=== PATIENT | male | born 1970 | race Caucasian/White ===

== ENCOUNTER 2017-11-26 07:11 | Emergency (ER) | payer OTHER, SELFPAY ==
[2017-11-26 07:14] VITALS: BP 128/77; PULSE 75; RESP 16; TEMP 36.8; O2SAT 100; BMI 22.1
--- NOTE | 2017-11-26 07:27 | ED.VISSUMM ---
- ER Visit Summary Date of Service: 11/26/17 Chief Complaint: Epigastric abdominal pain History of Present Illness: The patient is a 47 M presents from urgent care because of left lower quadrant pain on palpation. He presents with epigastric burning-like discomfort since Sunday. He ate a cheesy vegetable pizza at 1700. Pain started at approximately 2000. The pain is been constant. Movement does exacerbate the pain. He has tried multiple [id number] antacids without effect. He does complain of nausea without vomiting or diarrhea. He denies fever, chills night sweats. He denies weight loss or weight gain. He states he is a vegetarian. He denies any chest discomfort. He denies history of liver, gallbladder or kidney disease. He states there is no family history of cholelithiasis or renal/ureteral lithiasis. He states this is the third episode. He does not recall what he may have eaten before the first. For the second episode he had a pizza with cheese. He does admit to drinking 3-4 beers. He apparently had wine with the pizza on Sunday. He denies history of pancreatitis. He is a non-smoker. There is no history of trauma. He denies any black or bloody stool. He does report increased belching and burping. Bowel movements have been normal with no change in color, consistency or caliber of his stool. He denies dysuria, frequency, urgency or hematuria. He denies any ocular, visual or auditory symptoms. He does complain of thirst. He denies any cardiac or respiratory symptoms. Please read written note for complete detail Physical Examination: Vital signs are normal. He is afebrile. He is a thin gentleman. He does not appear in obvious distress. Head is atraumatic normocephalic. Pupils are equal round reactive. Extraocular muscles are intact. TMs are pearly white with landmarks noted. Nares patent with no drainage. Posterior pharynx without erythema or exudate. Uvula is midline. There is no dysphonia or dysphasia. Trachea is midline. There is no stridor with auscultation of the neck. Heart is regular without murmur, gallop or rub. S1 and S2 are normal. Lungs are clear to auscultation with good movement of air bilaterally. Abdomen is slightly distended tympanitic with decreased bowel sounds. He hurts predominantly in the left lower quadrant and right lower quadrant. Pain is greater on the left side. There is mild discomfort with deep palpation and guarding. He is tympanitic to percussion. There is no peritoneal symptoms with percussion. Evidence of umbilical or inguinal hernia. There is no skin lesion noted. There is no CVA tenderness. He is alert oriented with a nonfocal neurologic exam. Test Results: CBC is remarkable for mild anemia with an H&H 12.4 and 37.9. Electronic panels unremarkable. Hepatic and lipase are unremarkable. CT of the abdomen and pelvis with IV contrast was obtained and reveals a mesenteric mass. Radiologist concerned this represents lymphoma. Patient was made aware of CT results. There is a large soft tissue mass centered in the mesentery, which appears to encase portions of the superior mesenteric artery and vein. This region is heterogeneous with scattered areas of low attenuation which may represent necrosis. This measures at least 10.5 x 5.4 cm. Additional matted lymph nodes are seen within the mesentery. Emergency Department Course and Treatment: IV was established and patient was made n.p.o. He was offered pain medicine which he declined. Based on his description of discomfort concern for gastritis, peptic ulcer disease liver/gallbladder disease. With history of alcohol use one needs to entertain possibility pancreatitis. With having significant tenderness left lower quadrant concern for diverticular disease. A CBC, hepatic and lipase were ordered as well as BMP to assess renal function. Treatment Plan: In light of the CT results Dr. Brennon Barger oncologist for the clinic clinic was contacted since his PCP is Dr. Jaeger. Dr. Navarrete requested additional blood work. The uric acid level, LDH and coags are all normal. Two-view chest x-ray was obtained and there is no hilar lymphadenopathy. Patient is scheduled for outpatient CT-guided biopsy for November 28 at 10 AM. Disposition: Discharged to home with outpatient follow-up and further testing Impression: Abdominal pain secondary to mesenteric mass with lymphadenopathy suspect lymphoma This note was generated with [employer] dictation software. It may contain incorrect words, spelling, and punctuation that were not noted in review of the chart prior to signing ED Disposition - Plan for ED Patient: Disposition: Home or Assisted Living Chief Complaint: Abd Pain Instructions: Discharge Instructions for Hodgkin Disease Referrals: Harpreet Jaeger MD [Primary Care Provider] - Brennon Barger MD [STAFF PHYSICIAN] - 1 Week
[2017-11-26] MEDS: 0.9% Normal Saline 1,000 ML 250 ML IV (07:39)
[2017-11-26 07:47] LABS: Absolute Lymphocyte Count 1.19 X10^3/ul (0.83-4.51); Absolute Neutrophil Count 6.1 X10^3/uL (2.0-7.7); Basophil% 0.2 % (0-1); Eosinophils% 1.3 % (0-5); Hemoglobin 12.4 g/dl (13.0-16.5); Lymphocyte # 1.19 X10^3/ul (4.0); Lymphocyte % 14.3 % (19-41); Mean Corp Hgb Conc 31.8 g/gl (32-36); Mean Corpuscular Hgb 27.9 pg (27.0-32.0); Mean Corpuscular Volume 87.8 fL (80-94); Mean Platelet Vol. 9.5 fl (6.2-12.0); Monocyte# 0.94 X10^3/uL; Monocyte% 11.3 % (0-10); Neutrophil # 6.07 X10^3/uL (2.7-7.7); Neutrophil % 72.8 % (47-70); Platelet Count 239 K/mm3 (150-450); RBC Distribution Width CV 13.9 % (11.6-14.6); RBC Distribution Width SD 44.3 fl (35.1-43.9); Red Blood Count 4.44 M/mm3 (4.6-6.2); White Blood Count 8.3 K/mm3 (4.4-11.0)
[2017-11-26 07:48] LABS: Basophil# 0.02 X10^3/uL; Eosinophil# 0.11 X10^3/uL
[2017-11-26 07:50] LABS: POSITIVE COUNT NO; POSITIVE DIFFERENTIAL NO; POSITIVE MORPHOLOGY NO
[2017-11-26 08:05] LABS: AST(SGOT) 18 U/L (15-37); Alanine Aminotransfer ALT/SGPT 17 U/L (16-61); Albumin, Serum 3.7 g/dL (3.2-5.0); Alkaline Phosphatase 71 U/L (45-117); Anion Gap 5 (5-15); BUN 10 mg/dL (7-18); BUN/Creat Ratio 9.3 RATIO (10-20); Bilirubin, Direct 0.28 mg/dL (0.00-0.30); Calcium,Total 8.7 mg/dL (8.5-10.1); Chloride 105 mmol/L (98-107); Creatinine, Serum 1.07 mg/dL (0.70-1.30); EST Glomerular Filtration Rate 79 mL/min (>60); Est Glom Filt Rate - Afr Amer 96 mL/min (>60); Estimated Creatinine Clearance 88.93 ml/min; Globulin 3.9 g/dL (2.2-4.2); Glucose 94 mg/dL (74-106); Lipase 119 U/L (73-393); Potassium 3.7 mmol/L (3.5-5.1); Protein, Total 7.6 g/dL (6.4-8.2); Sodium Level 139 mmol/L (136-145)
--- NOTE | 2017-11-26 08:17 | CT_ITS ---
STUDY: CT ABDOMEN AND PELVIS WITH CONTRAST REASON FOR EXAM: Male, 47 years old. Left lower quadrant abdominal pain, guarding RADIATION DOSAGE (If Supplied By Facility): CTDIvol = ( 9.71 ) mGy, DLP = ( 524.39 ) mGycm TECHNIQUE: Transaxial images were obtained from the dome of the diaphragm to the symphysis pubis without oral contrast. 100mL ml of Isovue 300 contrast was administered. Sagittal and coronal images were reconstructed. Individualized dose optimization techniques were used for this CT. COMPARISON: None. FINDINGS: The visualized lung bases are unremarkable. The visualized portions of the heart are within normal limits. Normal liver. Normal gallbladder and extrahepatic biliary system. Normal spleen. Normal pancreas. Normal bilateral adrenal glands. There is a 3.6 cm right renal cyst. Normal left kidney. Normal visualized stomach. Normal small intestine. Normal colon. There is non-visualization of the appendix. Normal abdominal aorta. Normal inferior vena cava. There is a large soft tissue mass centered in the mesentery, which appears to encase portions of the superior mesenteric artery and vein. This region is heterogeneous with scattered areas of low attenuation which may represent necrosis. This measures at least 10.5 x 5.4 cm. Additional matted lymph nodes are seen within the mesentery. Normal urinary bladder. There is a moderate amount of free fluid within the pelvis. The prostate gland appears slightly enlarged. Normal abdominal wall. Normal osseous structures. CT/Abdomen/Pelvis W IV Cont ONLY IMPRESSION: Abnormal study, with mesenteric based mass. The appearance suggests lymphoma. Additional considerations include desmoid tumor and her soft tissue sarcomas. Further evaluation with PET/CT can be performed. Ultimately, tissue sampling will likely be necessary. There is no bowel obstruction. N.B. : The above information has been verbally conveyed by Corby Mcdonald DO to Dr. Suarez, Covering Physician, on 11/26/2017 09:19:03 (ET). Electronically Signed: Corby Mcdonald DO at 9:08 EDT Tel , Service support , N.B. : The above information has been verbally conveyed by Corby Mcdonald DO to Dr. Suarez, Covering Physician, on 11/26/2017 09:19:03 (ET).
--- NOTE | 2017-11-26 09:27 | RAD_ITS ---
STUDY: X-RAY CHEST REASON FOR EXAM: Male, 47 years old. Abdominal pain TECHNIQUE: PA and lateral views of the chest. COMPARISON: CT, same date FINDINGS: The lungs are clear and expanded. There is no demonstrated pleural abnormality. Normal size heart. Normal mediastinum and danielle. Normal visualized pulmonary arteries. Normal visualized aortic arch and descending thoracic aorta. Normal visualized thoracic spine. Normal visualized ribs, clavicles, and shoulders. There is no demonstrated abnormality of the visualized soft tissue structures of the upper abdomen. RAD/Chest PA and Lateral IMPRESSION: Normal x-ray examination of the chest. No mediastinal or hilar adenopathy. Electronically Signed: Corby Mcdonald DO at 10:11 EDT Tel , Service support ,
[2017-11-26 10:00] LABS: International Normalized Ratio 1.1; Partial Thromboplast Time 30.2 Seconds (24.1-36.2); Prothrombin Time (Protime)PT. 13.9 SECONDS (11.7-14.9)
[2017-11-26 10:01] LABS: LDH 195 U/L (87-241); Uric Acid 3.8 mg/dL (3.5-7.2)
[2017-11-26 10:34] VITALS: BP 126/82; PULSE 71; RESP 16; O2SAT 98
--- NOTE | 2017-11-26 10:40 | ED.RN ---
PT GIVEN INFORMATION FOR HIS APPT FOR WED TO HAVE HIS BIOPSY. PT VERBALIZED UNDERSTANDING.
[2017-11-26 11:02] VITALS: BP 125/74; PULSE 71; RESP 14; O2SAT 99
== END 2017-11-26 11:05 | disposition home or self-care (01) ==
PROVIDERS: Emergency Provider Emergency Medicine; Family Provider Family Medicine; PCP Family Medicine
DX: R19.07 Generalized intra-abdominal and pelvic swelling, mass and lump (principal); R59.0 Localized enlarged lymph nodes; Z72.89 Other problems related to lifestyle
CPT/HCPCS: 71046; 74177; 80048; 80076; 83615; 83690; 84550; 85025; 85610; 85730; 96360; 96361; 99283; J7030; Q9967; A4216

== ENCOUNTER → 2017-11-28 09:08 | Outpatient (CLI) | payer OTHER, SELFPAY ==
--- NOTE | 2017-11-28 | IMM_PTH ---
PATIENT: GAURAV SON LOC: [place] U#:[id number] AGE/SX: 55/M ROOM: RE11/28/[address]: Dr. David Suarez MD : 1970 BED: DIS: SPEC #: [id number] RECD: 11/29/17 12:28 STATUS: JADIEL REQ #: [id number] WILLIAM: 11/28/17 00:[address]: David Suarez DEPT: IMMUNOHISTOCHEMISTRY RECD BY: Anita Wheat ENTERED: 11/29/17 12:30 SP TYPE: IMMUNO OTHR DR: Dr. Harpreet Jaeger MD Tissues: Mesentery, NOS Procedures: BCL-2 (add) BCL-6 (add) CD20 (add) CD23 (add) CD3 (add) CD30 (add) CD43 (add) CD45 (add) CD5 (add) CD79A (add) CYCLIN (add) CD15 (initial) PHYSICIAN & [place] [id number] SPECIMEN INFORMATION: Tissue Source: Lower abdominal mass Clinical Info: Mesenteric mass Specimen Number: [id number] CPT code: 53811, 99504 x11 METHODOLOGY: Deparaffinized sections of prefer/formalin-fixed tissue or PAP/DQ stained slides are incubated with monoclonal/polyclonal antibodies/oligonucleotide probes. Localization is made via biotin free immunoperoxidase method. Appropriate controls are performed and reacted as expected. Results on target cell population are indicated in the following table: RESULTS: ANTIBODY / CLONE RESULT CD15 (MMA) negative CD30 (Jose Ramon-H2) negative CD3 (PS1) positive CD5 (SP10) positive CD20 (L26) positive CD79a (11E3) positive CD45 (RP2/18) positive BCL-2 (bcl-2/100/D5) positive BCL-6 (XC972J/A8) negative CD43 (L60) positive CD23 (1B12) negative Cyclin D1/BCL-1 (SP4) negative These tests were developed and their performance characteristics determined by [facility]. They may not have been cleared or approved by the U.S. Food and Drug Administration. The FDA has determined that such clearance or approval is not necessary. INTERPRETATION: Abdominal mass, CT-guided core biopsy: Dense fibrosis and polymorphous lymphocytes. AM:rochelle 12/04/17 Comment: Incisional/excisional biopsy is recommended for definitive diagnosis. Case has been reviewed in consultation with Dr. Saab who concurs with the above diagnosis. IDC:[id number]
--- NOTE | 2017-11-28 | ASPIGT_PTH ---
PATIENT: GAURAV SON LOC: [place] U#:[id number] AGE/SX: 55/M ROOM: RE11/28/[address]: Dr. David Suarez MD : 1970 BED: DIS: SPEC #: [id number] RECD: 11/28/17 12:32 STATUS: JADIEL SARAH #: [id number] WILLIAM: 11/28/17 00:[address]: David Suarez DEPT: SURGICAL PATHOLOGY RECD BY: Andrew Arevalo ENTERED: 11/28/17 12:34 SP TYPE: ASP RAD OTHR DR: Dr. Harpreet Jaeger MD Tissues: Abdomen, NOS Procedures: FNA Specimen Adequacy Special Stain Group II Surgery Specimen Level IV Imprint (control) HEADER OPERATION: CT-guided core abdominal biopsy PRE-OP DIAGNOSIS: Mesenteric mass TISSUE SUBMITTED: 18g core x3, lower abdominal mass MICROSCOPIC DIAGNOSIS Abdominal mass, CT-guided core biopsy: Dense fibrosis and polymorphous lymphocytes. AM:rochelle 12/04/17 COMMENT The specimen is evaluated at the time of crush prep by Dr. Daniel. 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 Immunohistochemistry shows polymorphous lymphocytes. Flow analysis was canceled due to low yield (93 events acquired). An excisional/incisional biopsy is recommended for definitive diagnosis. MICROSCOPIC DESCRIPTION Slides are reviewed. GROSS DESCRIPTION Received in fixative is one container labeled with the patient's name and designated lower abdominal mass. The specimen consists of a single core of light wiggins soft tissue measuring 1 cm in length and <0.1 cm in diameter. The specimen is submitted in its entirety in one cassette. Four smears were obtained at the time of biopsy, two stained DQ, two stained pap. / AM:rochelle 11/28/17 TC: CPT: 91632 ADDENDUM ADDENDUM ADDENDUM ADDENDUM ADDENDUM ADDENDUM ADDENDUM ADDENDUM ADDENDUM ADDENDUM ADDENDUM 06/13/2018 09:49 ADDENDUM 06/13/2018 09:49 ADDENDUM 06/13/2018 09:49 ADDENDUM 06/13/2018 09:49 ADDENDUM 06/13/2018 09:49 This addendum is added to incorporate an outside pathology consultation report. The case was examined at [facility] (#[id number]) and the following diagnosis was rendered. Abdominal mass, CT-guided core biopsy: Fibroadipose tissue with sparse lymphoid infiltrate. No definite evidence for malignancy. Please see complete above mentioned consultation report in EMR
--- NOTE | 2017-11-28 09:11 | CT_ITS ---
PROCEDURE: CT-guided core biopsy of mesenteric mass under conscious sedation. CLINICAL HISTORY: Male, [address] of the abdomen and pelvis performed November 26, 2017 demonstrate mesenteric based mass suggesting lymphoma. CONSENT: The entire procedure, risks, benefits and alternatives (including doing nothing) were discussed with the patient preprocedure. Risks presented included (but were not limited to) infection/abscess, bleeding, pain, reaction to medications and potential need for rebiopsy. All patient questions were answered satisfactorily. Written consent was obtained, witnessed and placed on the patient's chart. Time-Out Called: Yes Consent form signed: YES PT-PTT Levels Checked: Yes SEDATION: Conscious sedation. 1 mg Versed IV; 50 mcg fentanyl IV. TECHNIQUE: Coaxial technique with 18-gauge biopsy through the 17-gauge introducer. FINDINGS: The patient was taken into the CT suite and placed supine feet first on the scanner table. Limited and directed preprocedure CT without contrast was performed. The mesenteric based mass was redemonstrated and a ventral midline intended percutaneous site was identified and marked. A short timeout was performed. Utilizing fluoroscopy CT and sterile coaxial technique, 3, 18-gauge cores were obtained through the mesenteric based mass. All devices were removed, the soft tissues cleansed and a sterile occlusive dressing applied. POST PROCEDURE Device/Needle Used: 18-gauge through 17-gauge introducer. Number of samples taken: 3. CT/Biopsy/Inj or Needle Placement IMPRESSION: Successful, CT-guided mesenteric mass core biopsy under conscious sedation. Complication: The patient tolerated the procedure well. There was no evident immediate postprocedure complication. Electronically Signed: Cooper Reynolds MD at 11:01 EDT , Service support ,
[2017-11-28 09:30] VITALS: BP 114/71; PULSE 74; RESP 18; TEMP 37; O2SAT 99; BMI 22.3
== END ==
PROVIDERS: Family Provider Family Medicine; PCP Family Medicine; Visit Provider Emergency Medicine
DX: R19.00 Intra-abdominal and pelvic swelling, mass and lump, unspecified site (principal)
CPT/HCPCS: 49180; 77012; 88172; 88305; 88313; 88341; 88342; 99156; 99157; J7040; A4216

== ENCOUNTER 2017-12-13 08:54 | Day surgery (SDC) | payer OTHER, SELFPAY ==
--- NOTE | 2017-12-13 | IMM_PTH ---
PATIENT: GARUAV SON [place] [facility] [id number] AGE/SX: 47/M ROOM: RE12/13/[address]: Dr. Germaine Landaverde MD : 1970 BED: DIS: 12/13/2017 SPEC #: [id number] RECD: 12/14/17 10:37 STATUS: JADIEL REQ #: [id number] WILLIAM: 12/13/17 00:[address]: Germaine Landaverde DEPT: IMMUNOHISTOCHEMISTRY RECD BY: Anita Wheat ENTERED: 12/14/17 10:40 SP TYPE: IMMUNO OTHR DR: Dr. Harpreet Jaeger MD Tissues: Lymph node of abdomen, NOS Procedures: CK8 (initial) BCL-2 (add) BCL-6 (add) CD10 (add) CD138 (add) CD15 (add) CD20 (add) CD23 (add) CD3 (add) CD30 (add) CD43 (add) CD45 (add) CD5 (add) CD79A (add) CYCLIN (add) KI-67 (add) PHYSICIAN & [address] [address] SPECIMEN INFORMATION: Tissue Source: Intra-abdominal lymph node Clinical Info: Intra-abdominal lymphadenopathy Specimen Number: [id number] CPT code: 80642, 35880 x15 METHODOLOGY: Deparaffinized sections of prefer/formalin-fixed tissue or PAP/DQ stained slides are incubated with monoclonal/polyclonal antibodies/oligonucleotide probes. Localization is made via biotin free immunoperoxidase method. Appropriate controls are performed and reacted as expected. Results on target cell population are indicated in the following table: RESULTS: ANTIBODY / CLONE RESULT CK8 (71ogrrU52) negative CD3 (PS1) negative CD5 (SP10) negative CD20 (L26) positive CD43 (L60) negative CD45 (RP2/18) positive CD79a (11E3) positive CD138 (B-A38) negative CD10 (56C6) negative CD15 (MMA) negative CD23 (1B12) negative CD30 (Jose Ramon-H2) negative BCL-2 (bcl-2/100/D5) positive BCL-6 (ON790Q/A8) positive Cyclin D1/BCL-1 (SP4) negative Ki-67 (30-9) positive, moderate These tests were developed and their performance characteristics determined by [facility]. They may not have been cleared or approved by the U.S. Food and Drug Administration. The FDA has determined that such clearance or approval is not necessary. 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 SJ:rochelle 12/17/17
--- NOTE | 2017-12-13 | FLU_PTH ---
PATIENT: GAURAV SON LOC: [facility] – [place] U#:[id number] AGE/SX: 47/M ROOM: RE12/13/[address]: Dr. Germaine Landaverde MD : 1970 BED: DIS: 12/13/2017 SPEC #: [id number] RECD: 12/13/17 12:18 STATUS: JADIEL RE #: [id number] WILLIAM: 12/13/17 00:[address]: Germaine Landaverde DEPT: CYTOLOGY RECD BY: Dangelo White ENTERED: 12/13/17 12:19 SP TYPE: Fluid OTHR DR: Dr. Harpreet Jaeger MD Tissues: Abdomen, NOS Procedures: Pap Stain (control) Special Stain Group II Special Stain Group I Surgery Specimen Level IV AFB Stain (control) GMS Stain (control) Cell Block Cytospin Fluid HEADER OPERATION: Diagnostic laparoscopy, excision intra-abdominal lymph nodes PRE-OP DIAGNOSIS: Intra-abdominal lymphadenopathy TISSUE SUBMITTED: Intra-abdominal fluid for cytology DIAGNOSIS CYTOLOGY Intra-abdominal fluid for cytology (cytospin and cell block): Monomorphous population of small lymphocytes noted. Special stains for acid fast bacilli and fungi are negative for organisms; matched controls are appropriate. BARBRA:rochelle 12/17/17 COMMENT Please correlate with corresponding surgical specimen ([id number]). Please make reference to previous specimen ([id number]) abdominal mass, CT-guided core biopsy with diagnosis of dense fibrosis and polymorphous lymphocytes. CYTOLOGY STUDY Slides are reviewed. CYTOLOGY GROSS Received is 2 ml of pink, cloudy fluid labeled with the patient's name and and designated per the requisition as intra-abdominal fluid. Submitted for cytology preparation including cell block. / 12/13/17 TC:0 CPT: 98642, 89261, 03045 x2
--- NOTE | 2017-12-13 | LYMN_PTH ---
PATIENT: GAURAV SON LOC: [facility] U#:[id number] AGE/SX: 47/M ROOM: RE12/13/[address]: Dr. Germaine Landaverde MD : 1970 BED: DIS: 12/13/2017 SPEC #: [id number] RECD: 12/13/17 12:19 STATUS: JADIEL SARAH #: [id number] WILLIAM: 12/13/17 00:[address]: Germaine Landaverde DEPT: SURGICAL PATHOLOGY RECD BY: Dangelo White ENTERED: 12/13/17 12:20 SP TYPE: LYMPH NODE OTHR DR: Dr. 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 Special stains for acid fast bacilli and fungi are negative for organisms; matched controls are appropriate. See comment. BARBRA:rochelle 12/17/17 COMMENT Immunohistochemistry ([id number]) supports the above diagnosis. Please make reference to previous specimen ([id number]), abdominal mass, CT-guided core biopsy with diagnosis of dense fibrosis and polymorphous lymphocytes. MICROSCOPIC DESCRIPTION Slides are reviewed. Follicular architecture is not seen. The specimen entirely consists of small lymphocytes (centrocytes) in a diffuse pattern with extensive fibrosis. Areas of necrosis or increased mitoses are not seen. GROSS DESCRIPTION Received is one container labeled with the patient's name and not further designated. The specimen consists of a discoid fragment of pink-white soft tissue measuring 1.5 x 1.2 x 0.5 cm. The specimen is serially sectioned and totally submitted in one cassette. Note, portions of the tissue are submitted for cultures. / AM:rochelle 12/13/17 TC:0 CPT: 33944, 34008 x2 ADDENDUM ADDENDUM ADDENDUM ADDENDUM ADDENDUM ADDENDUM ADDENDUM ADDENDUM ADDENDUM ADDENDUM 06/13/2018 09:52 ADDENDUM 06/13/2018 09:52 ADDENDUM 06/13/2018 09:52 ADDENDUM 06/13/2018 09:52 ADDENDUM 06/13/2018 09:52 This addendum is added to incorporate an outside pathology consultation report. The case was examined at [facility] (#[id number]) and the following diagnosis was rendered. 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 Please see complete above mentioned consultation report in EMR
[2017-12-13 09:30] VITALS: BP 105/67; PULSE 56; RESP 16; TEMP 37.3; O2SAT 100; BMI 21.6
--- NOTE | 2017-12-13 10:38 | OP.PN_ITS ---
Immediate Post-Op Note Date of Procedure: 12/13/17 Primary Surgeon/Physician: Germaine Landaverde top cutter: Willard Short Pre-Operative Diagnosis: intraabdominal lymphadenopathy Post-Operative Diagnosis: same, path pending Surgery/Procedure Performed:: diagnostic laparoscopy, excisional of intraabdominal lymph node Description of Surgical Findings:: large intraabdominal adenopathy, also probable sterile lymphatic fluid in the peritoneum Estimated Blood Loss: < 5 ml Specimen's removed: intraabdominal lymph node Type of Anesthesia:: General ASA Class: ASA1 Normal Healthy Patient - Admit VTE Documentation VTE Present on Admission: Yes VTE Mechan Device Prophylaxis: SCD's
--- NOTE | 2017-12-13 10:38 | PCM.DC.GS ---
Discharge Diet: No Restrictions Discharge Activity: Return to Normal Activity, May not drive while taking narcotic pain medications. Lifting Restrictions: no lifting greater than 20 pounds for one month Call your doctor if your incision/area has: Continuous Slow Oozing, Foul Smelling Discharge Call your doctor if you observe: Fever of 101 or Higher Additional Dressing/Incision Instructions:: Leave dressings in place. May get wet in shower. Do not soak - no tub baths/swimming Allergies/Adverse Reactions: Allergies No Known Allergies Allergy (Verified 11/26/17 07:39) Medications to take at Discharge Multivitamin [Daily Multiple Vitamin] 1 each PO DAILY 12/13/17 Primary Care Physician: Harpreet Jaeger MD [Primary Care Provider] - Please Follow Up With: Germaine Landaverde MD - call When: to be seen in one week, please call for date and time, thank you
[2017-12-13] MEDS: Bupivacaine 0.25% 30 ML Vial (11:38)
--- NOTE | 2017-12-13 11:47 | PCM.OPRPT ---
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 Appropriate time out protocol was followed. The patient was then placed under general anesthesia. The patients abdomen was then prepped with a sterile surgical skin preparation and sterile surgical drapes were placed. The infraumbilical skin fold was grasped with penetrating clamps and the skin and subcutaneous tissues were infiltrated with local anesthetic. A skin incision was then made. The incision was carried down to the subcutaneous tissue. Blunt dissection was done to identify the antterior fascia. The fascia was then incised under direct visualization. The intraabdominal cavity was entered under direct visualization. A 11mm trocar was then placed into the intraabdominal cavity. A CO2 pneumoperitoneum was then created. A 10 mm laparoscope was then inserted into the trocar. Careful examination of the intraabdominal contents was then done. There was no evidence of injury to any internal organs from placement of the trocar. Under direct visualization, a 5mm suprapubic trocar was then placed into the intraabdominal cavity. The skin and subcutaneous tissues was infiltrated with local anesthetic. Attention was then directed to the intraabdominal contents. The patient had a centralized mass emanating from the mesentery. There were no obvious satellite lesions. 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 A nodular protrusion at the left upper quadrant of this mass was identified and appeared to be easily accessible to biopsy. The cautery device was used to excise this lesion. It was then forwarded as a fresh specimen to pathology for analysis. Also a sample of chylous ascites was also forwarded to pathology for analysis. Hemostasis at the excisional biopsy site was controlled with electrocautery. No active bleeding was noted at time of closure. The CO2 pneumoperitoneum was released and all trocars were removed intact. The periumbilical fascia was reapproximated with a figure-of-8 vicryl suture. All skin incisions were reapproximated with monocryl suture. Cavilon and steristrips were applied to reinforce skin closure and proper sterile dressings were placed. The patient was then extubated and brought to the Recovery Room in stable condition. - Complications none noted - Admit VTE Documentation VTE Present on Admission: Yes VTE Mechan Device Prophylaxis: SCD's
[2017-12-13 11:57] VITALS: BP 105/67; BP 115/81; PULSE 56; RESP 14; TEMP 36.9; O2SAT 100
[2017-12-13 12:00] VITALS: BP 105/67; BP 106/62; PULSE 55; RESP 18; O2SAT 98
[2017-12-13 12:15] VITALS: BP 105/67; BP 115/75; PULSE 57; RESP 14; O2SAT 99
[2017-12-13 12:32] VITALS: BP 105/67; BP 99/86; PULSE 57; RESP 14; TEMP 36.9; O2SAT 96
[2017-12-13 13:35] VITALS: BP 105/67
== END 2017-12-13 13:54 | disposition home or self-care (01) ==
LOC: SDC 08:57 → AC 08:58
PROVIDERS: Family Provider Family Medicine; PCP Family Medicine; Visit Provider Surgery
PROC: (CPT 49320; principal; 2017-12-13 07:15)
DX: C82.53 Diffuse follicle center lymphoma, intra-abdominal lymph nodes (principal); I89.8 Other specified noninfective disorders of lymphatic vessels and lymph nodes; I88.0 Nonspecific mesenteric lymphadenitis
CPT/HCPCS: 38570; 87015; 87070; 87075; 87101; 87116; 87205; 87206; 88108; 88305; 88312; 88313; 88341; 88342; J7120

== ENCOUNTER → 2017-12-18 08:05 | Outpatient (CLI) | payer OTHER, SELFPAY ==
--- NOTE | 2017-12-18 08:15 | RAD_ITS ---
PROCEDURE: SMALL BOWEL SERIES DATE OF EXAMINATION: December 18, 2017.. INDICATION: Male, 47 years old. Mesenteric adenopathy. PHYSICIAN: David Salazar M.D. FLUOROSCOPY TIME (if supplied): (71 seconds) minutes/seconds TECHNIQUE: Radiographic and fluoroscopic images were taken of the small intestine following the ingestion of barium. COMPARISON: None. FINDINGS: A preliminary supine KUB was obtained. There is an unremarkable bowel gas pattern. Fecal material is present throughout the colon. Phleboliths are present within the pelvis. The lung bases are unremarkable. The osseous structures are normal. The patient orally ingested approximately 12 ounces of thin barium Normal visualized fundus, body, and antrum of the stomach. Normal duodenal bulb, C-loop, and proximal jejunum. Normal visualized mucosal folds of the jejunum and ileum. There are no demonstrated dilatations, strictures, or masses of the small intestine. There is evidence of blood displacement of the small bowel loops in the right lower quadrant suggestive of a mesenteric mass and splaying of the ileal bowel loops. This corresponds to the CT findings. There is a normal motor pattern with barium reaching the colon within approximately 30 minutes. Spot films under fluoroscopic observation demonstrated a normal terminal ileum and ileocecal valve. RAD/Small Bowel Series Only IMPRESSION: Splaying of the small bowel loops in the right lower quadrant suggestive of a mesenteric mass. No intrinsic small bowel abnormality is seen. Electronically Signed: David Salazar MD at 10:27 EDT Tel [phone], Service support ,
== END ==
PROVIDERS: Family Provider Family Medicine; PCP Family Medicine; Visit Provider Internal Medicine Hematology & Oncology
DX: R59.0 Localized enlarged lymph nodes (principal)
CPT/HCPCS: 74250